=== PATIENT | female | born 1985 | race Caucasian/White ===

== ENCOUNTER 2022-08-11 08:53 | Emergency (ER) | payer BC, SELFPAY ==
--- NOTE | 2022-08-11 08:58 | ED.DENTAL ---
HPI - Dental/Oral General Chief complaint: Dental/Oral Stated complaint: painful swelling of right cheek Time Seen by Provider: 08/11/22 08:58 Source: patient and RN notes reviewed History of Present Illness HPI Narrative: patient is a 37-year-old female who presents to the Urgent Care with complaints of right upper dental pain and facial swelling. Patient states it has been for the last 4 days. Patient has been taking ibuprofen and Tylenol. States that she has seen an oral surgeon and the tooth needs surgically removed. Patient denies any fevers, nausea or vomiting. No other acute complaints. No acute distress noted. Patient aware of the plan care. Some parts of this dictation were generated by voice recognition software and may contain typographical and/or grammatical inaccuracies. Related Data Allergies Allergy/AdvReac Type Severity Reaction Status Date / Time codeine Allergy Unknown Verified 08/11/22 09:15 Review of Systems Review of Systems: CONSTITUTIONAL: Denies fever, chills, or sweats. EYES: Denies visual changes, redness, or discharge. ENT: Denies rhinorrhea, congestion, sore throat, or otalgia. reports of right upper dental pain and swelling CARDIOVASCULAR: Denies chest pain, palpitations, or edema. RESPIRATORY: Denies cough or dyspnea. GASTROINTESTINAL: Denies abdominal pain, nausea, vomiting, or diarrhea. GENITOURINARY: Denies dysuria or hematuria. SKIN: Denies rash or itching. MUSCULOSKELETAL: Denies back pain, joint pain, or myalgia. NEUROLOGIC: Denies headache, numbness, or weakness. All other systems reviewed are negative, except as documented in HPI. PMFSH Comments At the time of my signature, I reviewed and agree with the nursing past medical, surgical, social, and family history. There is no relevant family history pertinent to the patient complaint. Exam Narrative: GENERAL: This is a well-nourished, well-developed patient, in no apparent distress. HEAD: normocephalic, atraumatic. EYES: PERRL. Sclera clear/white. Vision is grossly intact. EARS: External ears normal NOSE: External nose normal with no obvious nasal discharge, nares without redness, no rhinorrhea. THROAT: Mucous membranes moist, posterior pharynx clear. DENTAL: carious lesion to the right upper lateral incisor with notable abscess with edema/erythema NECK: Neck supple, non-tender without lymphadenopathy CARDIOVASCULAR: Regular rate and rhythm without murmurs, gallops, or rubs. SKIN: warm, intact with no suspicious lesions or rash, good texture and turgor. NEURO: awake, alert, and oriented to person, place and time. There were no obvious focal neurologic abnormalities. EXTREMITIES: No clubbing, cyanosis, or edema. Course Course Level of Care: Express Care Visit Vital Signs Vital signs: Vital Signs Temperature 98.4 F 08/11/22 09:00 Pulse Rate 82 08/11/22 09:00 Respiratory Rate 14 08/11/22 09:00 Blood Pressure 124/79 08/11/22 09:00 Pulse Oximetry 99 08/11/22 09:00 Oxygen Delivery Room Air 08/11/22 09:00 Temperature 98.4 F 08/11/22 09:00 Pulse Rate 82 08/11/22 09:00 Respiratory Rate 14 08/11/22 09:00 Blood Pressure 124/79 08/11/22 09:00 Pulse Oximetry 99 08/11/22 09:00 Oxygen Delivery Room Air 08/11/22 09:00 reviewed MDM - Dental/Oral MDM Narrative Medical decision making narrative: Advised patient to complete the oral antibiotic regimen as prescribed. Be sure to eat and drink with the medication. Take the 1 time Diflucan after you complete the oral antibiotic. Use the chlorhexidine mouth rinse for the next 10 days and then switch to [id number] prevention and mouthwash. Use the ibuprofen / Tylenol as needed for pain or discomfort. Follow up with her dentist for re-evaluation within 1 week. Differential Diagnosis Differential diagnosis: Likely gingival abscess, dental caries, toothache, dental abscess, fracture of tooth and aphthous ulcer Discharge Plan Discharge Cl
[2022-08-11 09:00] VITALS: BP 124/79; PULSE 82; RESP 14; TEMP 36.9; O2SAT 99
== END 2022-08-11 09:19 | disposition home or self-care (01) ==
PROVIDERS: Emergency Provider Nurse Practitioner Family
DX: K02.9 Dental caries, unspecified (principal); K04.7 Periapical abscess without sinus
CPT/HCPCS: 99213; G0463

== ENCOUNTER 2023-01-12 11:28 | Emergency (ER) | payer BC, SELFPAY ==
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
[2023-01-12 11:32] VITALS: BP 123/80; PULSE 98; RESP 14; TEMP 36.8; O2SAT 100
== END 2023-01-12 12:14 | disposition home or self-care (01) ==
PROVIDERS: Emergency Provider Nurse Practitioner Family
DX: S29.012A Strain of muscle and tendon of back wall of thorax, initial encounter (principal); X58.XXXA Exposure to other specified factors, initial encounter
CPT/HCPCS: 99213; G0463

== ENCOUNTER 2024-01-30 09:10 | Emergency (ER) | payer BC, SELFPAY ==
[2024-01-30 09:22] VITALS: BP 109/74; PULSE 71; RESP 18; TEMP 36.6; O2SAT 100
--- NOTE | 2024-01-30 09:22 | ED.DENTAL ---
HPI - Dental/Oral General Chief complaint: Dental/Oral Stated complaint: tooth pain Time Seen by Provider: 01/30/24 09:22 Source: patient, RN notes reviewed and old records reviewed Mode of arrival: ambulatory Limitations: no limitations History of Present Illness HPI Narrative: 38-year-old female to Express Care for complaint of right lower molar pain since yesterday. Patient reports that she felt her tooth break yesterday while eating. Patient has attempted to treat at home with Advil with little relief. Patient states that the pain was so bad this morning that she vomited. Patient called her dentist this morning and can be seen next week but was told that she will not be seen if infection is suspected. Patient able to tolerate fluids by mouth. Related Data Allergies Allergy/AdvReac Type Severity Reaction Status Date / Time codeine AdvReac Severe Nausea and Verified 01/30/24 09:31 Vomiting Review of Systems Review of Systems: All systems reviewed & are unremarkable except as noted in HPI and below Constitutional: Constitutional: Reports no additional constitutional complaints Eyes: Eyes: Reports no additional eye complaints ENT: Reports as per HPI and Reports dental pain Cardiovascular: Cardiovascular: Reports no additional cardiovascular complaints, Denies chest pain and Denies dyspnea Respiratory: Respiratory: Reports no additional respiratory complaints, Denies cough and Denies dyspnea Musculoskeletal: Musculoskeletal: Reports no additional musculoskeletal complaints Neurologic: Reports system reviewed and no additional complaints, except as documented Psychiatric: Psychiatric: Reports no additional psychiatric complaints PMFSH Comments At the time of my signature, I reviewed and agree with the nursing past medical, surgical, social, and family history. There is no relevant family history pertinent to the patient complaint. Exam Const: General: cooperative, healthy appearing, comfortable, no acute distress, alert and well nourished Nutritional Appearance: well nourished Orientation/consciousness: patient oriented x3 Limitations: no limitations HENMT: Head: normal to inspection Ears: external ears normal Face/Nose/Sinus: Normal external nose present, Normal nares present, normal facial exam, No erythema and No edema Face and sinus: normal facial exam, no erythema and no edema Mouth: Yes Normal oral and palatal mucosa present Teeth and gingiva: abnormal tooth and associated gingiva lower right second molar , fair dentition and gingiva abnormal hypertrophic Throat: posterior oropharynx normal Eyes: General: appearance normal, both eyes and all related structures Neck: Neck: normal visual inspection, full ROM and no meningeal signs Lymphatic: no lymphadenopathy noted and no lymphedema noted Chest: Chest palpation & inspection: normal inspection of the chest Resp: Effort & Inspection: normal respiratory effort and able to speak in complete sentences Auscultation: clear to auscultation bilaterally Cardio: Jugular venous distension: no JVD Rate: regular rate Rhythm: regular rhythm Back/Spine/Pelvis: Cervical Spine: cervical ROM normal Skin: General skin exam: normal color, no rashes or lesions noted and turgor normal Neuro: General: patient oriented x3, gait normal, moves all extremities and no meningeal signs Speech: normal speech Gait exam (Neuro): Normal gait present Extrem: General: normal to inspection, full ROM and capillary refill normal Psych: Appearance: grossly normal and well kempt Course Course Emergency Course: Some parts of this dictation were generated by voice recognition software and may contain typographical and/or grammatical inaccuracies. Level of Care: Express Care Visit Vital Signs Vital signs: Vital Signs Temperature 36.6 C 01/30/24 09:22 Pulse Rate 71 01/30/24 09:22 Respiratory Rate 18 01/30/24 09:22 Blood Pressure 109/74 01/30/24 09:22 Pu
== END 2024-01-30 09:59 | disposition home or self-care (01) ==
PROVIDERS: Emergency Provider Nurse Practitioner Family
DX: K04.7 Periapical abscess without sinus (principal); S02.5XXA Fracture of tooth (traumatic), initial encounter for closed fracture; X58.XXXA Exposure to other specified factors, initial encounter
CPT/HCPCS: 99213; G0463

== ENCOUNTER 2024-12-18 18:49 | Emergency (ER) | payer BC, SELFPAY ==
--- NOTE | ~2024-12-18 | XR_ITS ---
HISTORY: running caught foot tarsal pain COMPARISON: None TECHNIQUE: 3 views of the left ankle were performed FINDINGS: No acute fracture or dislocation. No significant soft tissue swelling. The ankle mortise is preserved. Bone mineralization is age-appropriate. IMPRESSION: No acute fracture or dislocation, as detailed above. Reviewed, dictated and finalized at location A.
--- OUTSIDE RECORDS SUMMARY | 2024-12-18 18:51 | XMS_ITS | Patient Health Record ---
Author Organization [facility] Billing Info Address [address] [place], [place] [id number] Care Team Providers Care Geospatial Engineer Name Role Phone Radha MEDRANO Unavailable Unavailabl e Reason For Referral No Information Plan Of Treatment No Information Insurance Providers Payer Name Payer Address Payer Phone Subscriber Number Group Number Insured Name Patient Relationship to Insured Coverage Start Date Coverage End Date [facility] [address] [place], [place] [id number] Meche Simpson Self - patient is the insured 9
[2024-12-18 19:00] VITALS: BP 130/72; PULSE 82; RESP 18; TEMP 36.4; O2SAT 100
--- NOTE | 2024-12-18 19:01 | ED_ITS ---
HPI - Extremity Injury (Lower) General Chief Complaint: Extremity Injury, Lower Stated Complaint: left ankle pain Time Seen by Provider: 12/18/24 19:10 Source: patient, RN notes reviewed and old records reviewed Mode of arrival: ambulatory Limitations: no limitations History of Present Illness HPI Narrative: 39 year old [facility] of injury to her left lateral ankle with pain after chasing after her puppy in the grass and she got her foot stuck in between 2 small stumps that patient didn't see below grass and she turned her left ankle. Patient reports that she has had pain to the lateral ankle which increases with ambulation. Patient reports she has taken some Ibuprofen for her pain and she has elevated the leg. Patient reports increased pain with weight bearing and movement. 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 Patient reports no other injuries. MD complaint: ankle injury Onset (ago): day(s) (last night) Injury: Left: ankle (lateral) Type of Injury: other (twisted) Place: street/outdoors Severity scale (1-10): 9 Treatments prior to arrival: NSAIDS and other (elevation) Related Data Home Medications ?Medication ?Instructions ?Recorded ?Confirmed ?Last Taken ?Type No Home Medications 12/18/24 12/18/24 Unknown History Allergies Allergy/AdvReac Type Severity Reaction Status Date / Time codeine AdvReac Severe Nausea and Verified 12/18/24 19:03 Vomiting Review of Systems Review of Systems: CONSTITUTIONAL: Denies fever, chills, or sweats. EYES: Denies visual changes, redness, or discharge. ENT: Denies rhinorrhea, congestion, sore throat, or otalgia. CARDIOVASCULAR: Denies chest pain, palpitations, or edema. RESPIRATORY: Denies cough or dyspnea. GASTROINTESTINAL: Denies abdominal pain, nausea, vomiting, or diarrhea. GENITOURINARY: Denies dysuria or hematuria. SKIN: Denies rash or itching. MUSCULOSKELETAL: Denies back pain,POSITIVE FOR LEFT LATERAL ANKLE PAIN, or myalgia. NEUROLOGIC: Denies headache, numbness, or weakness. PSYCHIATRIC: Denies anxiety or depression. All systems reviewed & are unremarkable except as noted in HPI and below PMFSH Past Medical History Medical History (Updated 12/18/24 @ 19:50 by Samina Antonio NP) Muscle strain Fracture of tooth Dental abscess Surgical History Surgical History (Updated 12/18/24 @ 19:47 by Samina Antonio NP) History of tubal ligation Previous section x3 Social History Social History (Updated 12/18/24 @ 20:01 by Samina Antonio NP) Smoking status: Current every day smoker Alcohol intake: current Substance use type: does not use Living arrangements: with family Gender identity (if verbalized by the patient): Female Comments At time of signature, agree with nursing past medical, surgical, social and family history. There is no relevant family history pertinent to the presenting complaint Exam Narrative: GENERAL: Well-appearing, well-nourished, and in no acute distress. HEAD: Normocephalic, atraumatic. EYES: PERRLA and EOMI. ENT: Nares clear, no rhinorrhea or epistaxis. Mucous membranes moist.TM's normal throat normal and pink with no swelling NECK: Supple.no lymphadenopathy CHEST: Clear to auscultation. No respiratory distress. SAO2 100% on room air HEART: Regular rate and rhythm. No murmur heard. Normal peripheral pulses. ABDOMEN: Soft, nontender, nondistended, normal active bowel sounds. EXTREMITIES: Normal range of motion. No edema. Exception noted to left lateral ankle with pain reported after twisting injury, mild swelling present with increased pain with movement and ambulation. strong left pedal pulse, sensation is intact to left foot. SKIN: Warm, dry, no rash. NEURO: No focal deficits. Alert and oriented x3. Course Course Emergency Course: Patient is aware of diagnosis, understands and agrees to treatment plan.? Anticipatory guidance given.? Patient agrees to follow-up as directed and is aware of reasons to seek care at the emergency department. Portions of this record may have been created with voice recognition software Level of Care: Express Care Visit Vital Signs Vital signs: Vital Signs Temperature 36.4 C 12/18/24 19:00 Pulse Rate 82 12/18/24 19:00 Respiratory Rate 18 12/18/24 19:00 Blood Pressure 130/72 12/18/24 19:00 Pulse Oximetry 100 12/18/24 19:00 Oxygen Delivery Room Air 12/18/24 19:00 Temperature 36.4 C 12/18/24 19:00 Pulse Rate 82 12/18/24 19:00 Respiratory Rate 18 12/18/24 19:00 Blood Pressure 130/72 12/18/24 19:00 Pulse Oximetry 100 12/18/24 19:00 Oxygen Delivery Room Air 12/18/24 19:00 Reviewed MDM - Extremity Injury (Lower) Differential Diagnosis Differential diagnosis: Likely ankle sprain and strain, ankle fracture and other (pain to left ankle, ) Medical Records Attestation: I reviewed the patient's medical records. Imaging Data Attestation: I personally reviewed and interpreted this imaging study as follows: My impression: no acute fracture or dislocation, no significant soft tissue swelling Radiologist's impression: [facility] [address] [place] [address] [place] [address] XRay Report Signed Patient: Meche Simpson : 1985 MR#: [id number] Age: 39 Acct:[id number] Loc: [facility] ADM Date: 12/18/24Attending Dr: Ordering Physician: Samina Antonio APRN Date of Service: 12/18/24 Procedure(s): XR ankle LT min 3V Accession Number(s): [id number] cc: SMALL BUSINESS REPRESENTATIVE PHYSICIAN; Samina Antonio APRN~ HISTORY: running caught foot tarsal pain COMPARISON: None TECHNIQUE: 3 views of the left ankle were performed FINDINGS: No acute fracture or dislocation. No significant soft tissue swelling. The ankle mortise is preserved. Bone mineralization is age-appropriate. IMPRESSION: No acute fracture or dislocation, as detailed above. Reviewed, dictated and finalized at location A. Please be advised this is a medical document. It is intended for fojo-pu-fzaj communication. It is written in medical language and may contain unfamiliar abbreviations or verbiage. Medical documents are intended to carry relevant information, facts as evident, and the clinical opinion of the practitioner at the time of the encounter. This report may have been done utilizing a voice recognition system. Attempts have been made to correct errors. However, there may be uncorrected grammatical, spelling, and recognition errors present. The file time of this note does not necessarily represent the time of service. Dictated By: Saige Becerra MD 12/18/241919 Signed By: <Electronically signed by Saige Becerra MD in OV> Critical Care Time Critical Care Time Critical Care Time: No Discharge Plan Discharge Clinical Impression: Ankle sprain Qualifiers: Encounter type: initial encounter Involved ligament of ankle: unspecified ligament Laterality: left Qualified Code(s): S93.402A - Sprain of unspecified ligament of left ankle, initial encounter Patient Disposition: Home, Self-Care Condition: Stable Instructions: Antibiotic Form Additional Instructions: Elastic wrap or orthopedic splint as directed for comfort for the next 5-7 days Tylenol for lesser pain Ibuprofen regularly for the next 2-3 days for the inflammation 600 mg 3 times a day for the next 2 days with food Follow-up with orthopedic surgeon if further concerns Follow-up with PCP if further problems or concerns Ice to the area 20-30 minutes 4-6 times a day Elevate above heart If your symptoms persist, change or worsen significantly before you can contact your personal physician then please, without delay, go to the emergency department for further evaluation. Follow-up with PCP in 7-10 days or sooner if needed Follow up with PCP soon in regards to your blood pressure which is elevated above threshold for referral. Blood pressure above 120/80 may indicate pre- hypertension. 130/72 Patient Language: Surinamese Prescriptions: No Action No Home Medications Follow-up/Referrals: PHYSICIAN,SMALL BUSINESS REPRESENTATIVE [Primary Care Provider] - Stand Alone Forms: Work/School Release IP Time of Disposition: 19:36 Quality Moodus Coma Scale Eyes: Open Verbal: Oriented and Alert Motor: Follows Commands Kaden Coma Total Score: 15
== END 2024-12-18 19:41 | disposition home or self-care (01) ==
PROVIDERS: Emergency Provider Registered Nurse
DX: S93.402A Sprain of unspecified ligament of left ankle, initial encounter (principal); X50.9XXA Other and unspecified overexertion or strenuous movements or postures, initial encounter; Y93.02 Activity, running; F17.200 Nicotine dependence, unspecified, uncomplicated
CPT/HCPCS: 73610; 99213; G0463